=== PATIENT | male | born 1960 | race Caucasian/White ===

== ENCOUNTER 2021-06-27 13:00 | Inpatient (IN) | payer OTHER ==
[~2021-06-27] VITALS: Ht 185.4 cm; Wt 110.8 kg
[2021-06-27 10:56] LABS: BASOPHILS % (AUTO) 0.7 % (0.0-5.0); EOSINOPHILS % (AUTO) 5.2 % (0.0-8.0); HEMATOCRIT 46.3 % (42-54); LYMPHOCYTES % (AUTO) 26.7 % (21.0-51.0); MEAN CORPUSCULAR HEMOGLOBIN 31.7 pg (27.0-33.0); MEAN CORPUSCULAR HGB CONC 32.8 g/dL (32.0-36.0); MEAN CORPUSCULAR VOLUME 96.7 fL (79-99); PLATELET COUNT (AUTO) 248 K/uL (130-400); RED BLOOD CELL COUNT(AUTO) 4.79 MIL/uL (4.50-6.20); RED CELL DISTRIBUTION WIDTH 12.9 % (11.0-15.5); WHITE BLOOD COUNT (AUTO) 8.1 K/uL (4.8-10.8)
[2021-06-27 11:10] LABS: INR 0.98 (0.85-1.15); PROTHROMBIN TIME 10.7 SEC (9.6-11.6)
[2021-06-27 11:12] LABS: PARTIAL THROMBOPLASTIN TIME 25.7 SEC (26.3-35.5)
[2021-06-27 11:14] LABS: APPEARANCE,URINE Clear (CLEAR); BILIRUBIN,URINE Negative (NEGATIVE); COLOR,URINE Yellow (YELLOW); GLUCOSE, URINE (UA) Negative (NEGATIVE); KETONES,URINE Negative (NEGATIVE); LEUKOCYTE ESTERASE ,URINE Trace (NEGATIVE); NITRATE,URINE Negative (NEGATIVE); OCCULT BLOOD,URINE Negative (NEGATIVE); PROTEIN,URINE Negative (NEGATIVE); UROBILINOGEN,URINE 0.2 mg/dL (0.2-1.0)
[2021-06-27 11:19] LABS: CREATININE 0.9 mg/dL (0.5-1.5); POTASSIUM 4.9 mmol/L (3.5-5.1)
[2021-06-27 12:40] LABS: BACTERIA,URINE None Seen /HPF (None Seen); RBC,URINE None Seen /HPF (0-1); SQUAMOUS EPITHELIAL CELL,UR None Seen /HPF (0-2); WBC,URINE 0-1 /HPF (0-1)
[2021-06-28 10:39] VITALS: BP 138/69
[2021-06-28] MEDS ORDERED: FINA5TAB41 PO (11:03)
[2021-06-28] MEDS ORDERED: LISI20TA24 PO (11:03)
[2021-06-28] MEDS ORDERED: ATOR10 PO (11:03)
[2021-06-29] VITALS (32 sets, daily range): BP systolic 80–125; BP diastolic 44–70
[2021-06-29] MEDS ORDERED: LACTATED RINGERS 1000ML 1,000 ML IV ONE (07:35)
[2021-06-29] MEDS ORDERED: CEFAZOLIN SODIUM 1 GM VIAL IVP ONE (08:00)
[2021-06-29] MEDS ORDERED: TRANEXAMIC ACID 1000MG/10ML ONE (08:13)
[2021-06-29] MEDS ORDERED: SUCCINYLCHOLINE 200MG/10ML SYR ONE (08:48)
[2021-06-29] MEDS ORDERED: SUCCINYLCHOLINE CHLORIDE 20 MG/ML 10 ML VIAL ONE (08:48)
[2021-06-29] MEDS ORDERED: GLYCOPYRROLATE 1 MG/5 ML SYRINGE ONE (08:49)
[2021-06-29] MEDS ORDERED: NEOSTIGMINE 5MG/5ML SYR IV ONE (08:49)
[2021-06-29] MEDS ORDERED: MIDAZOLAM HCL 1 MG/ML 2ML VIAL ONE (08:49)
[2021-06-29] MEDS ORDERED: PROPOFOL 10 MG/ML 20ML VIAL IV ONE (08:49)
[2021-06-29] MEDS ORDERED: ROCURONIUM 10MG/1ML SYR 10 MG/ML ML ONE ×2 (08:49→10:16)
[2021-06-29] MEDS ORDERED: EPHEDRINE SULFATE 50 MG/ML AMPULE ONE ×2 (10:05→12:17)
[2021-06-29] MEDS ORDERED: FENTANYL CITRATE PF 50 MCG/1 ML 2ML VIAL ONE ×3 (10:16→12:34)
[2021-06-29] MEDS: CEFAZOLIN SODIUM 1 GM VIAL ONE ×2 (10:23→10:24)
[2021-06-29] MEDS ORDERED: DEXAMETHASONE SOD PHOSPHATE 10MG/ML 1ML VIAL ONE (10:41)
[2021-06-29] MEDS ORDERED: KCL 20 MEQ ERTAB PO PRN (13:00)
[2021-06-29] MEDS ORDERED: CALCIUM CARB 500MG PO PRN (13:00)
[2021-06-29] MEDS ORDERED: LIDOCAINE HCL-MPF 1% 2ML VIAL IV PRN (13:00)
[2021-06-29] MEDS ORDERED: POTASSIUM CHLORIDE 10% ELIXIR 20 MEQ/15 ML UDCUP PO PRN (13:00)
[2021-06-29] MEDS ORDERED: FERROUS FUMARATE 324 MG TABLET PO PRN (13:00)
[2021-06-29] MEDS ORDERED: DiphenhydrAMINE HCL 50 MG/ML VIAL IVP PRN (13:00)
[2021-06-29] MEDS ORDERED: TRAMADOL HCL 50 MG TABLET PO PRN (13:00)
[2021-06-29] MEDS ORDERED: POTASSIUM CHLORIDE 20MEQ/100ML 100 ML IV PRN (13:00)
[2021-06-29] MEDS: 0.9%NACL 1000ML 1,000 ML IV SCH ×2 (13:00→23:14)
[2021-06-29] MEDS ORDERED: ONDANSETRON 4MG INJ IVP PRN (13:00)
[2021-06-29] MEDS ORDERED: FENTANYL CITRATE PF 50 MCG/1 ML 5ML AMP IV ONE (13:03)
[2021-06-29] MEDS ORDERED: MEPERIDINE-PF 25 MG/ML SYG ONE ×2 (13:56→14:11)
[2021-06-29] MEDS ORDERED: HYDROMORPHONE 1 MG INJ ONE ×4 (14:25→15:00)
[2021-06-29] MEDS: CEFAZOLIN SODIUM 1 GM VIAL IVP SCH (17:13)
[2021-06-29] MEDS: ACETAMINOPHEN 500 MG TABLET PO SCH ×2 (17:14→19:39)
[2021-06-29] MEDS: OXYCODONE HCL 5 MG TAB PO PRN ×2 (17:20→21:17)
[2021-06-29] MEDS: KETOROLAC 15MG/ML VIAL (15MG/ML) IV PRN ×2 (18:24→23:14)
[2021-06-29] MEDS: PREGABALIN 25 MG CAP PO SCH (20:40)
[2021-06-29] MEDS: FAMOTIDINE 20MG TAB PO SCH (20:41)
[2021-06-29] MEDS: ASPIRIN 81 MG EC TAB PO SCH (20:41)
[2021-06-29] MEDS: ATORVASTATIN 20 MG TABLET PO SCH (20:41)
[2021-06-29] MEDS: CELECOXIB 200 MG CAP PO SCH (20:41)
[2021-06-30] VITALS (7 sets, daily range): BP systolic 100–124; BP diastolic 54–70
[2021-06-30] MEDS: CEFAZOLIN SODIUM 1 GM VIAL IVP SCH (02:00)
[2021-06-30] MEDS: OXYCODONE HCL 5 MG TAB PO PRN ×3 (02:04→13:28)
[2021-06-30] MEDS: ACETAMINOPHEN 500 MG TABLET PO SCH ×3 (04:08→20:23)
[2021-06-30 04:15] LABS: MEAN CORPUSCULAR HEMOGLOBIN 31.9 pg (27.0-33.0); MEAN CORPUSCULAR HGB CONC 33.4 g/dL (32.0-36.0); MEAN CORPUSCULAR VOLUME 95.4 fL (79-99); RED BLOOD CELL COUNT(AUTO) 3.67 MIL/uL (4.50-6.20); RED CELL DISTRIBUTION WIDTH 12.9 % (11.0-15.5); WHITE BLOOD COUNT (AUTO) 15.3 K/uL (4.8-10.8)
[2021-06-30 04:37] LABS: CREATININE 0.9 mg/dL (0.5-1.5); POTASSIUM 4.4 mmol/L (3.5-5.1)
[2021-06-30] MEDS: KETOROLAC 15MG/ML VIAL (15MG/ML) IV PRN ×3 (05:48→20:25)
[2021-06-30] MEDS: PREGABALIN 25 MG CAP PO SCH ×2 (08:36→20:24)
[2021-06-30] MEDS: ASPIRIN 81 MG EC TAB PO SCH ×2 (08:37→20:23)
[2021-06-30] MEDS: FAMOTIDINE 20MG TAB PO SCH ×2 (08:37→20:23)
[2021-06-30] MEDS: FINASTERIDE 5 MG TABLET PO SCH (08:37)
[2021-06-30] MEDS: CELECOXIB 200 MG CAP PO SCH ×2 (08:37→20:23)
[2021-06-30] MEDS: LISINOPRIL 20 MG TABLET PO SCH (08:37)
[2021-06-30] MEDS: TAMSULOSIN HCL 0.4 MG CAP.ER.24H PO SCH (08:38)
[2021-06-30] MEDS: POLYETHYLENE GLYCOL 3350 17 GM POWD.PACK PO SCH (08:39)
[2021-06-30] MEDS: 0.9%NACL 1000ML 1,000 ML IV SCH (09:00)
[2021-06-30] MEDS: ATORVASTATIN 20 MG TABLET PO SCH (20:23)
[2021-07-01 03:45] VITALS: BP 133/70
[2021-07-01] MEDS: OXYCODONE HCL 5 MG TAB PO PRN ×2 (03:54→08:08)
[2021-07-01] MEDS: ACETAMINOPHEN 500 MG TABLET PO SCH ×2 (05:00→14:48)
[2021-07-01 08:01] VITALS: BP 151/72
[2021-07-01] MEDS: ASPIRIN 81 MG EC TAB PO SCH (08:07)
[2021-07-01] MEDS: LISINOPRIL 20 MG TABLET PO SCH (08:07)
[2021-07-01] MEDS: PREGABALIN 25 MG CAP PO SCH (08:07)
[2021-07-01] MEDS: FAMOTIDINE 20MG TAB PO SCH (08:07)
[2021-07-01] MEDS: FINASTERIDE 5 MG TABLET PO SCH (08:07)
[2021-07-01] MEDS: POLYETHYLENE GLYCOL 3350 17 GM POWD.PACK PO SCH (08:07)
[2021-07-01] MEDS: TAMSULOSIN HCL 0.4 MG CAP.ER.24H PO SCH (08:07)
[2021-07-01] MEDS: CELECOXIB 200 MG CAP PO SCH (08:07)
[2021-07-01 11:36] VITALS: BP 149/72
[2021-07-02] MEDS ORDERED: BISACODYL 10 MG SUPP.RECT RC PRN (13:00)
== END 2021-07-01 19:00 | DRG 470 ==
LOC: DAHIP 06-29 06:52 → 4BH 06-29 15:33 → 4AH 06-30 05:54
PROVIDERS: ADMIT Orthopaedic Surgery; ATTEND Orthopaedic Surgery
PROC: 0SRB0J9 Replacement of Left Hip Joint with Synthetic Substitute, Cemented, Open Approach (ICD-10-PCS; principal; 2021-06-29 08:47)
PROC: 3E0T3BZ Introduction of Anesthetic Agent into Peripheral Nerves and Plexi, Percutaneous Approach (ICD-10-PCS; 2021-06-29 08:47)
DX: M16.12 Unilateral primary osteoarthritis, left hip (principal); Z20.822 Contact with and (suspected) exposure to COVID-19; F17.200 Nicotine dependence, unspecified, uncomplicated; D64.9 Anemia, unspecified; I10 Essential (primary) hypertension; N40.0 Benign prostatic hyperplasia without lower urinary tract symptoms
CPT/HCPCS: 36415; 73503; 80048; 81001; 85025; 85027; 85610; 85730; 87635; 87641; 97039; C1776; G0378; J0330; J0690; J1100; J1170; J1885; J2175; J2250; J2704; J2710; J3010; J3490; J7120